=== PATIENT | female | born 1980 | race Caucasian/White ===

== ENCOUNTER 2020-09-26 07:43 | Day surgery (SDC) | payer BC ==
[2020-09-25 10:56] VITALS: BMI 41.5
[2020-09-26] MEDS ORDERED: AFRIN NASAL MIST 15 ML BOT ONE ×2 (08:02→09:46)
[2020-09-26] MEDS ORDERED: Bacitracin Zinc Ointment 30 gm TUBE ONE (09:46)
[2020-09-26] MEDS ORDERED: Lidocaine 1% w/Epinephrine 1:100K 20 ML VIAL ONE (09:46)
[2020-09-26] MEDS ORDERED: EPINEPHrine 1 MG/ML AMP ONE (09:46)
[2020-09-26] MEDS ORDERED: Fentanyl 100 MCG/2 ML VIAL ONE ×3 (09:54→11:33)
[2020-09-26] MEDS ORDERED: Midazolam HCl 2 mg/2 ml Vial ONE (09:54)
[2020-09-26] MEDS ORDERED: Ondansetron PF 4 MG/2 ML Vial ONE (10:04)
[2020-09-26] MEDS ORDERED: Lidocaine 1% PF 5 ML VIAL ONE (10:04)
[2020-09-26] MEDS ORDERED: Dexamethasone 20 MG/5 ML VIAL ONE (10:04)
[2020-09-26] MEDS ORDERED: Rocuronium Bromide 10 MG/ML (10ML VIAL) ONE (10:04)
[2020-09-26] MEDS ORDERED: Glycopyrrolate 0.2 MG/ML 5 ML SYRINGE ONE (10:04)
[2020-09-26] MEDS ORDERED: PROPOFOL 200 MG/20 ML VIAL ONE (10:04)
== END 2020-09-26 13:20 | disposition home or self-care (01) ==
LOC: SDC 07:43
PROVIDERS: ATTEND Otolaryngology Plastic Surgery within the Head & Neck
PROC: 09TU8ZZ Resection of Right Ethmoid Sinus, Via Natural or Artificial Opening Endoscopic (ICD-10-PCS; principal; 2020-09-26)
PROC: 09TV8ZZ Resection of Left Ethmoid Sinus, Via Natural or Artificial Opening Endoscopic (ICD-10-PCS; principal; 2020-09-26)
PROC: 099T8ZZ Drainage of Left Frontal Sinus, Via Natural or Artificial Opening Endoscopic (ICD-10-PCS; principal; 2020-09-26)
PROC: 099S8ZZ Drainage of Right Frontal Sinus, Via Natural or Artificial Opening Endoscopic (ICD-10-PCS; principal; 2020-09-26)
PROC: 09SM0ZZ Reposition Nasal Septum, Open Approach (ICD-10-PCS; principal; 2020-09-26)
PROC: 09QK0ZZ Repair Nasal Mucosa and Soft Tissue, Open Approach (ICD-10-PCS; principal; 2020-09-26)
PROC: 099R8ZZ Drainage of Left Maxillary Sinus, Via Natural or Artificial Opening Endoscopic (ICD-10-PCS; principal; 2020-09-26)
PROC: 09TL7ZZ Resection of Nasal Turbinate, Via Natural or Artificial Opening (ICD-10-PCS; principal; 2020-09-26)
PROC: 099Q8ZZ Drainage of Right Maxillary Sinus, Via Natural or Artificial Opening Endoscopic (ICD-10-PCS; principal; 2020-09-26)
DX: J32.9 Chronic sinusitis, unspecified (principal); J34.2 Deviated nasal septum; J34.3 Hypertrophy of nasal turbinates; J34.89 Other specified disorders of nose and nasal sinuses; J30.1 Allergic rhinitis due to pollen; J30.81 Allergic rhinitis due to animal (cat) (dog) hair and dander; F32.9 Major depressive disorder, single episode, unspecified; F41.9 Anxiety disorder, unspecified; E66.01 Morbid (severe) obesity due to excess calories; Z68.41 Body mass index [BMI] 40.0-44.9, adult; Z79.899 Other long term (current) drug therapy; Z88.1 Allergy status to other antibiotic agents
CPT/HCPCS: 36415; 84703; 85014; J0171; J1100; J2250; J2405; J2704; J3010